=== PATIENT | female | born 1995 | race Caucasian/White ===

== ENCOUNTER 2023-09-27 06:00 | Inpatient (IN) | payer OTHER ==
[2023-09-27] MEDS ORDERED: TRANEXAMIC 1,000 MG/100ML-NACL 1,000 MG in EMPTY BAG 1 BAG IV PRN (06:29)
[2023-09-27] MEDS ORDERED: OXYTOCIN 10 UNIT/ML 1 ML VIAL IM PRN (06:29)
[2023-09-27] MEDS ORDERED: TERBUTALINE 1 MG/ML VIAL SQ PRN (06:29)
[2023-09-27] MEDS ORDERED: LIDOCAINE 0.5% (PF) 5 MG/ML (50 ML SDV) SQ PRN (06:29)
[2023-09-27] MEDS ORDERED: miSOPROStoL 200 MCG TAB PO PRN (06:29)
[2023-09-27] MEDS ORDERED: METHYLERGONOVINE 0.2 MG/ML 1 ML AMP IM PRN (06:29)
[2023-09-27] MEDS ORDERED: CARBOPROST TROMETHAMINE 250 MCG/ML 1 ML AMP IM PRN (06:29)
[2023-09-27] MEDS: LACTATED RINGERS 1,000 ML IV SCH (06:45)
[2023-09-27] MEDS: OXYTOCIN 30 UNITS/500 ML NS 30 UNIT in SALINE 1 500ML.BAG IV SCH (06:45)
[2023-09-27 07:38] LABS: Basophils % (A) 0 %; Eosinophils # (A) 0.1 k/uL (0-0.7); Eosinophils % (A) 1 %; HCT 36.5 % (34.0-46.0); HGB 12.1 gm/dL (11.4-16.0); Lymphocytes % (A) 20 %; MCH 28.8 pg (25.0-35.0); MCHC 33.2 g/dL (31.0-37.0); MCV 86.7 fL (80.0-100.0); Monocytes # (A) 0.4 k/uL (0-1.0); Monocytes % (A) 4 %; Neutrophils # (A) 7.4 k/uL (1.3-7.7); Neutrophils % (A) 74 %; Platelet Count 292 k/uL (150-450); RBC 4.21 m/uL (3.80-5.40); RDW 15.3 % (11.5-15.5); WBC 10.1 k/uL (3.8-10.6)
--- NOTE | 2023-09-27 12:13 | P.HPOB ---
History of Present Illness H&P Date: 09/27/23 Chief Complaint: IUP at 39-0/7 weeks 28-year-old 5 para 2-0-2-2 at 39-0/7 weeks, estimated due date of 10/03. Patient presents for elective induction of labor. Patient has been receiving routine care which has been essentially uncomplicated. Patient did req uest elective induction of labor. Patient notes good movement denies contractions vaginal bleeding or loss of fluid. Patient has a known blood type of O+, rubella status immune, hepatitis B surface engine negative, HIV negative, RPR is nonreactive, grew beta strep culture is negative. Review of Systems Constitutional: Denies chills, Denies fatigue, Denies fever Ears, nose, mouth and throat: Denies headache Cardiovascular: Reports leg edema Respiratory: Denies dyspnea Gastrointestinal: Denies nausea, Denies vomiting Genitourinary: Reports Past Medical History Past Medical History: No Reported History History of Any Multi-Drug Resistant Organisms: None Reported Past Surgical History: No Surgical Hx Reported Past Anesthesia/Blood Transfusion Reactions: No Reported Reaction Past Psychological History: No Psychological Hx Reported Smoking Status: Vaper Past Drug Use History: None Reported Medications and Allergies Allergies Allergy/AdvReac Type Severity Reaction Status Date / Time No Known Allergies Allergy Verified 09/27/23 06:25 Exam Osteopathic Statement: *. No significant issues noted on an osteopathic structural exam other than those noted in the History and Physical/Consult. Vital Signs Temp Pulse Resp BP Pulse Ox 09/27/23 06:25 97.6 F 109 H 16 100/66 98 Intake and Output 09/26/23 09/27/23 09/27/23 22:59 06:59 14:59 Other: Weight 85.729 kg Targeted physical exam is performed this date General is a well-nourished well-developed female in no acute distress, breathing is nonlabored, heart has a regular rate and rhythm, abdomen is gravid, on cervical exam she is 2/50/-3 station bulging bag of water is appreciated. Patient declines amniotomy. heart tones are noted to be category 1 and she is yojana irregularly. Results Result Diagrams: 09/27/23 06:41 Assessment and Plan (1) Term Current Visit: Yes Status: Acute Code(s): Z34.90 - ENCNTR FOR SUPRVSN OF NORMAL , UNSP, UNSP TRIMESTER SNOMED Code(s): 18113633 Plan: 28-year-old -0-0-2 at 39-0/7 weeks presents for elective induction of labor. Patient is admitted and Pitocin induction of labor has begun per hospital protocol. Patient declines amniotomy at this time. Options for analgesia are discussed including IV Nubain, nitrous which she states did not work with her last or epidural which she declines.
[2023-09-27] MEDS ORDERED: diphenhydrAMINE 50 MG CAP PO PRN (14:27)
[2023-09-27] MEDS ORDERED: ACETAMINOPHEN TAB 325 MG TAB PO PRN (14:27)
[2023-09-27] MEDS ORDERED: BENZOCAINE/MENTHOL SPRAY 1 GM/SPRAY AEROSOL TOPICAL PRN (14:27)
[2023-09-27] MEDS ORDERED: LANOLIN CREAM 1 GM TUBE TOPICAL PRN (14:27)
[2023-09-27] MEDS ORDERED: SIMETHICONE 80 MG CHEWABLE PO PRN (14:27)
[2023-09-27] MEDS ORDERED: diphenhydrAMINE 25 MG CAP PO PRN (14:27)
[2023-09-27] MEDS ORDERED: diphenhydrAMINE 50 MG/ML 1 ML VIAL IVP PRN ×2 (14:27)
[2023-09-27] MEDS ORDERED: HYDROCORTISONE 2.5% RECTAL CREAM 30 GM TUBE RECTAL PRN (14:27)
[2023-09-27] MEDS ORDERED: ZOLPIDEM 5 MG TAB PO PRN (14:27)
--- NOTE | 2023-09-27 14:30 | P.PROBDLV ---
Vaginal Delivery Note - . Vaginal Delivery Note: Findings, viable female delivered at 1416, weight of 6 pounds 11.2 ounces. 28-year-old 5 para 2-0-2-2 at 39 weeks of that presented this morning for elective induction of labor. Patient was admitted Pitocin induction of labor was begun. Patient declined amniotomy. Patient progressed through labor becoming uncomfortable and did request epidural upon sitting for epidural patient was noted to be completely dilated when laid back. Patient underwent amniotomy and copious clear fluid was noted, patient began pushing and had a normal spontaneous vaginal delivery of a viable female infant at 1416. Loose body cord was delivered through. Spontaneous cry was noted at . Umbilical cord was doubly clamped and cut placenta was delivered spontaneously intact with a three-vessel cord being noted. Patient did sustain a periurethral laceration that was hemostatic after delivery. No repair was completed. Complete survey of the patient's vaginal vault revealed no other lacerations that necessitated repair. Uterus was noted to be firm below the umbilicus at this time. Estimated blood loss 100 cc. All counts were to be correct x 2. Patient and tolerated delivery well and are resting comfortably.
[2023-09-27 14:59] VITALS: RESP 16
[2023-09-27] MEDS: IBUPROFEN 600 MG TAB PO SCH (18:45)
[2023-09-27] MEDS: SENNOSIDES-DOCUSATE SODIUM 1 EACH TAB PO SCH (19:50)
--- NOTE | 2023-09-28 05:55 | P.DS ---
Providers Date of admission: 09/27/23 06:06 Expected date of discharge: 09/28/23 Attending physician: Charley Kaplan Primary care physician: Stated None - Discharge Diagnosis(es) (1) Term Current Visit: Yes Status: Acute (2) Normal vaginal delivery Current Visit: Yes Status: Acute Hospital Course: 28-year-old 5 now para 3-0-2-3 that presented to labor and delivery on 09/26 at 39 weeks of for elective induction of labor. Patient was admitted to labor and delivery and Pitocin induction of labor was begun. Patient declined amniotomy. Patient progressed through labor eventually becoming uncomfortable and did request epidural, upon sitting for the epidural patient was noting rectal pressure and was noted to be completely dilated. Patient began pushing and had a normal spontaneous vaginal delivery of a viable female at 1416, weight of 6 pounds 11.2 ounces. A small periurethral laceration was appreciated after delivery, hemostatic no repair was needed. Patient's course has been uneventful. In this day 1 she is ambulating and voiding without difficulty. She is breast-feeding without difficulty. She states her pain is well-controlled. She would like discharge home at 24 hours. Plan - Discharge Summary Follow up Appointment(s)/Referral(s): Charley Kaplan DO [Doctor of Osteopathic Medicine] - 6 Weeks Patient Instructions/Handouts: Vaginal Delivery (GEN), Vaginal Delivery (DC) Activity/Diet/Wound Care/Special Instructions: No intercourse, tampons, or tub baths. No heavy lifting greater than a gallon of milk. No driving for two weeks. Call with any fever, shakes or chills, with any pain not alleviated by over the counter meds, or with any quesions or concerns. [id number] ibuprofen 600 mg every 6 hours as needed for pain. Discharge Disposition: HOME SELF-CARE
[2023-09-28 07:57] LABS: Basophils % (A) 0 %; Eosinophils # (A) 0.1 k/uL (0-0.7); Eosinophils % (A) 1 %; HCT 39.3 % (34.0-46.0); HGB 12.2 gm/dL (11.4-16.0); Lymphocytes # (A) 2.6 k/uL (1.0-4.8); Lymphocytes % (A) 23 %; MCH 27.4 pg (25.0-35.0); MCHC 30.9 g/dL (31.0-37.0); MCV 88.6 fL (80.0-100.0); Mean Platelet Volume 8.2; Monocytes # (A) 0.4 k/uL (0-1.0); Monocytes % (A) 4 %; Neutrophils # (A) 7.9 k/uL (1.3-7.7); Neutrophils % (A) 71 %; Platelet Count 294 k/uL (150-450); RBC 4.44 m/uL (3.80-5.40); RDW 15.3 % (11.5-15.5); WBC 11.1 k/uL (3.8-10.6)
[2023-09-28 08:20] VITALS: BP 121/82; PULSE 72; TEMP 98.2
== END 2023-09-28 14:50 | disposition home or self-care (01) | DRG 560 ==
LOC: 4FBP 06:06
PROVIDERS: ADMIT Obstetrics & Gynecology Obstetrics; ATTEND Obstetrics & Gynecology Obstetrics
PROC: 3E033VJ Introduction of Other Hormone into Peripheral Vein, Percutaneous Approach (ICD-10-PCS; principal; 2023-09-27)
PROC: 10907ZC Drainage of Amniotic Fluid, Therapeutic from Products of Conception, Via Natural or Artificial Opening (ICD-10-PCS; principal; 2023-09-27)
PROC: 10E0XZZ Delivery of Products of Conception, External Approach (ICD-10-PCS; principal; 2023-09-27)
DX: O71.82 Other specified trauma to perineum and vulva (principal); Z37.0 Single live birth; Z3A.39 39 weeks gestation of pregnancy
CPT/HCPCS: 85025; 86850; 86900; 86901